=== PATIENT | female | born 1955 | race Caucasian/White ===

== ENCOUNTER 2017-09-09 13:18 | Outpatient (CLI) | payer OTHER | END 2017-09-09 13:19 | disposition home or self-care (01) | LOC: DTY/OP 13:18 | PROVIDERS: ATTEND Surgery | DX: Z48.815 Encounter for surgical aftercare following surgery on the digestive system (principal); E11.9 Type 2 diabetes mellitus without complications; Z98.84 Bariatric surgery status | CPT/HCPCS: 97802 ==

== ENCOUNTER 2017-09-22 08:00 | Outpatient (CLI) | payer MEDICARE | END 2017-09-22 08:01 | disposition home or self-care (01) | LOC: BICMAMMO 08:00 | PROVIDERS: ATTEND Family Medicine | DX: Z12.31 Encounter for screening mammogram for malignant neoplasm of breast (principal) | CPT/HCPCS: 77063; 77067 ==

== ENCOUNTER 2017-11-26 12:00 | Outpatient (CLI) | payer MEDICARE ==
--- NOTE | 2017-11-26 13:15 | ULT ---
RIGHT UPPER QUADRANT ULTRASOUND: DATE: 11/26/17. COMPARISON: None. HISTORY: Elevated liver function tests. TECHNIQUE: Multiplanar, sahni scale, sonographic imaging of the right upper quadrant obtained. FINDINGS: The hepatic parenchyma is heterogeneous and echogenic suggesting steatosis. This limits assessment f or focal liver lesion and intrahepatic biliary dilatation. The pancreas appears grossly unremarkable , not optimally assessed secondary to body habitus and bowel gas. The ultrasound technol reports a positive Alvarez's sign, significance uncertain as there is no evidence for cholelithiasis, gallbladder wall t hickening, or pericholecystic fluid. Common bile duct measures 4 mm, within normal limits. The right kidney measures 11.6 cm in craniocau ale dimension and demonstrates no stone, hydronephrosis, or mass lesion. IMPRESSION: Positive sonographic Alvarez's sign, significance uncertain. Clinical correlation required. Probable hepatic steatosis. No evidence for cholelithiasis or cholecystitis. POS: [facility]
== END 2017-11-26 12:01 | disposition home or self-care (01) ==
LOC: SCSULT 12:00
PROVIDERS: ATTEND Family Medicine
DX: K76.9 Liver disease, unspecified (principal); R74.8 Abnormal levels of other serum enzymes
CPT/HCPCS: 76705

== ENCOUNTER 2017-12-13 07:55 | Outpatient (CLI) | payer MEDICARE ==
[2017-12-13 10:55] LABS: #Basophils 0.1 thou/uL (0.0-0.2); #Eosinphils 0.2 thou/uL (0.0-0.7); #Lymphocytes 2.9 thou/uL (1.20-3.40); #Monocytes 0.7 thou/uL (0.11-0.59); %Basophils 0.8 % (0.0-1.0); %Eosinophils 2.8 % (0.0-10.0); %Monocytes 7.9 % (0.0-10.0); %Neutrophils 55.5 % (42.0-75.0); Hemoglobin 15.5 g/dL (12.0-16.0); Mean Corpuscular HGB CONC 35.6 g/dL (32.0-36.0); Mean Corpuscular Hemoglobin 33.1 pg (27.0-31.0); Mean Platelet Volume 7.9 fL (7.4-10.4); Platelet Count 343 thou/uL (130-400); Red Blood Cell (RBC) Count 4.68 mill/uL (4.20-5.40); White Blood Cell (WBC) Count 8.9 thou/uL (4.8-10.8)
[2017-12-13 10:59] LABS: Hemoglobin A1c 8.5 % (4.0-6.0)
[2017-12-13 11:16] LABS: ALT (SGPT) 82 U/L (8-55); AST (SGOT) 70 U/L (5-34); Albumin 4.3 g/dL (3.4-4.8); Alkaline Phosphatase 133 U/L (40-150); Anion Gap 15 mmol/L (10-20); BUN (Urea Nitrogen) 16 mg/dL (9.8-20.1); Bilirubin, Direct 0.4 mg/dL (0.1-0.3); Bilirubin, Total 0.9 mg/dL (0.2-1.2); Calc. Creatinine Clearance 0 mL/min (70-130); Carbon Dioxide 16 mmol/L (23-31); Chloride 110 mmol/L (98-107); Estimated GFR-MDRD 76; Globulin 3.1 g/dL (2.4-3.5); Glucose 191 mg/dL (80-115); Potassium 4.3 mmol/L (3.5-5.1); Protein, Total 7.4 g/dL (6.0-8.3); Sodium 137 mmol/L (136-145)
--- NOTE | 2017-12-13 11:54 | RAD ---
CHEST TWO VIEWS: History: Pre op. FINDINGS: Heart size and mediastinum within normal limits. The lungs are clear of infiltrates. There are arthri tic changes of the spine. IMPRESSION: No active intrathoracic disease. POS: [facility]
== END 2017-12-13 07:56 | disposition home or self-care (01) ==
LOC: LABBT 07:55
PROVIDERS: ATTEND Surgery
DX: Z01.818 Encounter for other preprocedural examination (principal); E11.9 Type 2 diabetes mellitus without complications; Z68.42 Body mass index [BMI] 45.0-49.9, adult
CPT/HCPCS: 71046; 80053; 80076; 83036; 85025

== ENCOUNTER 2017-12-13 08:00 | Inpatient (IN) | payer MEDICARE ==
[2017-12-13 08:32] VITALS: BMI 37.5
[2017-12-22] MEDS ORDERED: CEFAZOLIN/Water 2 GM/20 ML SYRINGE ONE (13:30)
[2017-12-22] MEDS ORDERED: Scopolamine 1.5 mg/72 hour Patch ONE (13:30)
[2017-12-22] MEDS ORDERED: Heparin 5,000 UNITS/ML VIAL ONE (13:36)
[2017-12-22] MEDS ORDERED: Bupivacaine/Epinephrine 0.25% 30 ML VIAL ONE (13:44)
[2017-12-22] MEDS ORDERED: ePHEDrine/0.9% NaCl/PF SYRINGE 50 mg/10 ml ONE (13:45)
[2017-12-22] MEDS ORDERED: Fentanyl 100 MCG/2 ML VIAL ONE ×4 (13:45→16:33)
[2017-12-22] MEDS ORDERED: Glycopyrrolate 0.2 MG/ML 5 ML SYRINGE ONE (13:45)
[2017-12-22] MEDS ORDERED: Lidocaine 1% PF 5 ML VIAL ONE (13:45)
[2017-12-22] MEDS ORDERED: PHENYLEPHRINE-NS 100 MCG/ML 10 ML SYRINGE ONE (13:45)
[2017-12-22] MEDS ORDERED: PROPOFOL 200 MG/20 ML VIAL ONE (13:45)
[2017-12-22] MEDS ORDERED: Levofloxacin 500 mg/D5W 100 ml Premix Bag ONE (13:52)
[2017-12-22] MEDS ORDERED: Promethazine HCl 25 MG/ML VIAL ONE (16:22)
[2017-12-22] MEDS ORDERED: diphenhydrAMINE 50 MG/ML VIAL IM PRN (17:13)
[2017-12-22] MEDS ORDERED: Naloxone HCl 0.4 mg/ml Vial IV PRN (17:13)
[2017-12-22] MEDS ORDERED: fentaNYL Citrate/PF 2,000 MCG in Sodium Chloride 0.9% 60 ML IV PRN (17:13)
[2017-12-22] MEDS ORDERED: diphenhydrAMINE 50 MG/ML VIAL IVP PRN ×2 (17:13→18:24)
[2017-12-22] MEDS ORDERED: Zolpidem Tartrate 5 MG TAB PO PRN (17:13)
[2017-12-22] MEDS ORDERED: Ondansetron PF 4 MG/2 ML Vial IVP PRN ×2 (17:13→18:24)
[2017-12-22] MEDS ORDERED: diphenhydrAMINE 25 MG CAP PO PRN (17:13)
[2017-12-22] MEDS ORDERED: Communication Order-Pharmacy FS SCH (17:15)
[2017-12-22] MEDS ORDERED: Dextrose 50% Abboject 50 ML SYRINGE SLOW IVP PRN (18:24)
[2017-12-22] MEDS ORDERED: Dextrose 5% in Water 1,000 ML IV PRN (18:24)
[2017-12-22] MEDS ORDERED: hydrALAZINE 20 MG/ML VIAL SLOW IVP PRN (18:24)
[2017-12-22] MEDS ORDERED: HumaLOG 300 UNITS/3 ML VIAL SC PRN (18:24)
[2017-12-22] MEDS ORDERED: Hydrocodone-Acetamin 15 ML UDCUP PO PRN (18:24)
[2017-12-22] MEDS: 1/2 NS w/KCL 20 mEq 1,000 ML IV SCH (19:55)
[2017-12-22] MEDS ORDERED: Enoxaparin Sodium 40 MG/0.4 ML SYRINGE SC SCH (21:00)
[2017-12-22] MEDS ORDERED: Pantoprazole 40 MG VIAL IVP SCH (21:00)
[2017-12-22] MEDS: Promethazine HCl 25 MG/ML VIAL IM PRN (21:11)
--- NOTE | 2017-12-23 00:31 | OP ---
DATE OF PROCEDURE: 12/22/2017 PREOPERATIVE DIAGNOSES: 1. Morbid obesity with body mass index of 37. 2. Diabetes mellitus type 2. POSTOPERATIVE DIAGNOSES: 1. Morbid obesity with body mass index of 37. 2. Diabetes mellitus type 2. 3. Paraesophageal hiatal hernia. PROCEDURE: 1. Laparoscopic sleeve gastrectomy with [place] staple line reinforcements and 38 [place] bougie. 2. Laparoscopic paraesophageal hiatal hernia repair without mesh or fundoplication. SURGEON: Temo Valverde M.D. ANESTHESIA: General. ESTIMATED BLOOD LOSS: Minimal. COMPLICATIONS: None. SPECIMEN: Stomach. FINDINGS: Normal postoperative EGD. TECHNIQUE: The patient was taken to the operating room and placed supine on the table. After genera l anesthetic was obtained, OG tube was used to decompress the stomach. Arms and legs were double str apped to bariatric table. The abdomen was prepped and draped in a sterile fashion. Left subcostal 5 -mm Optiview trocar was placed in the usual fashion without injury. High-flow pneumoperitoneum was o btained. Left and right abdominal 12-mm ports as well as a right subcostal 5-mm port were placed und er direct visualization. High-flow pneumoperitoneum was obtained. The patient was placed in [place] position. A 5-mm incision was made at the xiphoid and Harshad was used to raise the liver o ff the GE junction. There was a hiatal hernia present. Short gastrics were taken down to a distance of 5 cm proximal to the pylorus all the way to the left ulices of the diaphragm. The left ulices and po sterior fundus and angle of His were completely dissected exposing the hiatal hernia. Gastrohepatic ligament was entered and marched up to the right ulices of the diaphragm. A circumferential dissection was then performed in the mediastinum and the GE junction is brought back into the abdominal cavity. The fundus of the stomach that was in the hiatal hernia is brought back down as well. Ethibond sut ure and the tie knot system was used to reapproximate the posterior crura. This was performed after a 38-[place] bougie was brought in and its tip left in the antrum of the stomach. Multiple loads of a n [place] stapling device with [place] staple line reinforcements were then used to form the sleeve. Th e first is fired up at a distance of 6 cm proximal to the pylorus, angled up towards the incisura. M ultiple loads then fired up along the bougie and the stomach was completely transected at the angle o f His. The stomach removed from the left abdominal incision. This fascial defect was closed using G Tiana needle 0 Vicryl tie. EGD scope was passed into the esophagus, stomach to the level of the duod enum without obstruction or stricture. There is no air leakage on the staple line, no bleeding, no e vidence of too much stenosis at the esophageal gastric junction or at the diaphragmatic hiatus. EGD scope was used to decompress the stomach, it was pulled and removed. The Harshad was removed under direct visualization without bleeding. All ports were removed under direct visualization without bl eeding. Pneumoperitoneum was let down. Vicryl was used to close the fascial defect from left abdomi nal incisions. All incisions were irrigated and closed using 4-0 Monocryl and Dermabond. The patien t was en route to recovery in stable condition. All sponge counts, needle counts, lap counts were co rrect.
[2017-12-23] MEDS: Promethazine HCl 25 MG/ML VIAL IM PRN ×4 (00:45→10:23)
[2017-12-23] MEDS: 1/2 NS w/KCL 20 mEq 1,000 ML IV SCH (04:15)
[2017-12-23 04:32] LABS: #Basophils 0.1 thou/uL (0.0-0.2); #Eosinphils 0.1 thou/uL (0.0-0.7); #Lymphocytes 2.8 thou/uL (1.20-3.40); #Monocytes 1.3 thou/uL (0.11-0.59); #Neutrophils 8.1 thou/uL (1.40-6.50); %Basophils 0.7 % (0.0-1.0); %Eosinophils 0.5 % (0.0-10.0); %Lymphocytes 22.5 % (21.0-51.0); %Monocytes 10.6 % (0.0-10.0); %Neutrophils 65.7 % (42.0-75.0); Hemoglobin 13.8 g/dL (12.0-16.0); Mean Corpuscular HGB CONC 35.4 g/dL (32.0-36.0); Mean Corpuscular Hemoglobin 33.2 pg (27.0-31.0); Mean Corpuscular Volume 93.8 fL (78.0-98.0); Mean Platelet Volume 8.1 fL (7.4-10.4); Platelet Count 300 thou/uL (130-400); RBC Distribution Width 11.2 % (11.5-14.5); Red Blood Cell (RBC) Count 4.15 mill/uL (4.20-5.40); White Blood Cell (WBC) Count 12.4 thou/uL (4.8-10.8)
[2017-12-23 04:56] LABS: Anion Gap 13 mmol/L (10-20); BUN (Urea Nitrogen) 10 mg/dL (9.8-20.1); Calc. Creatinine Clearance 122 mL/min (70-130); Calcium 8.7 mg/dL (7.8-10.44); Carbon Dioxide 21 mmol/L (23-31); Chloride 108 mmol/L (98-107); Estimated GFR-MDRD 78; Glucose 205 mg/dL (80-115); Potassium 3.5 mmol/L (3.5-5.1); Sodium 138 mmol/L (136-145)
[2017-12-23 12:17] VITALS: BP 129/75; TEMP 98.1
--- NOTE | 2017-12-24 00:20 | DIS ---
DATE OF ADMISSION: 12/22/2017 DATE OF DISCHARGE: 12/23/2017 ADMIT DIAGNOSES: 1. Morbid obesity. 2. Diabetes mellitus, type 2. DISCHARGE DIAGNOSES: 1. Morbid obesity. 2. Diabetes mellitus, type 2. 3. Diaphragmatic hiatal hernia. PROCEDURES: Laparoscopic gastric sleeve and hiatal hernia repair by Dr. Valverde without complication . CONDITION AT DISCHARGE: Improved. STAFF: Dr. Temo Valverde. HOSPITAL COURSE: Patient admitted to the floor postop, tolerated clear liquids immediately. On post op day #1, she is tolerating liquid diet. She is ambulatory. Her pain is controlled. She is discha rged home. She will follow up with me in the office in 2 weeks.
== END 2017-12-23 14:47 | disposition home or self-care (01) | DRG 621 ==
LOC: SURG A 12-22 11:56 → SJJU 12-22 18:05
PROVIDERS: ADMIT Surgery; ATTEND Surgery
PROC: 0DB64Z3 Excision of Stomach, Percutaneous Endoscopic Approach, Vertical (ICD-10-PCS; principal; 2017-12-22)
PROC: 0BQT4ZZ Repair Diaphragm, Percutaneous Endoscopic Approach (ICD-10-PCS; 2017-12-22)
DX: E66.01 Morbid (severe) obesity due to excess calories (principal); K44.9 Diaphragmatic hernia without obstruction or gangrene; E11.43 Type 2 diabetes mellitus with diabetic autonomic (poly)neuropathy; Z79.4 Long term (current) use of insulin; Z68.37 Body mass index [BMI] 37.0-37.9, adult
CPT/HCPCS: 36415; 36416; 80048; 85025; 88307; 88312; 94760; C9113; J0131; J1644; J1650; J1956; J2001; J2405; J2550; J2704; J3010; J7050

== ENCOUNTER 2018-06-20 13:25 | Outpatient (CLI) | payer MEDICARE, OTHER ==
--- NOTE | 2018-06-20 13:53 | RAD ---
LEFT HIP TWO VIEWS: History: Hip pain x three weeks. FINDINGS: There are some arthritic changes of the hip. There is some spurring of the acetabulum and along the f emoral head and neck junction. No significant joint space narrowing. IMPRESSION: Mild arthritic change of the hip. POS: [facility]
== END 2018-06-20 13:26 | disposition home or self-care (01) ==
LOC: SCSRAD 13:25
PROVIDERS: ATTEND Family Medicine
DX: M25.552 Pain in left hip (principal); M16.12 Unilateral primary osteoarthritis, left hip

== ENCOUNTER 2018-06-22 12:14 | Outpatient (CLI) | payer MEDICARE ==
--- NOTE | 2018-06-22 13:19 | RAD ---
LUMBAR SPINE FOUR VIEWS: History: Low back pain. FINDINGS: There are five lumbar type vertebrae. Pedicles are intact. Rightward convex rotatory scoliotic curvat ure. Vertebral body heights and AP alignment are maintained. Mild osteophytosis. No abnormal translat ional motion upon flexion or extension. IMPRESSION: Degenerative changes lumbar spine. No acute osseous abnormalities are demonstrated. POS: [facility]
== END 2018-06-22 12:15 | disposition home or self-care (01) ==
LOC: SCSRAD 12:14
PROVIDERS: ATTEND Family Medicine
DX: M47.26 Other spondylosis with radiculopathy, lumbar region (principal)
CPT/HCPCS: 72120

== ENCOUNTER 2018-11-10 09:35 | Outpatient (CLI) | payer MEDICARE ==
--- NOTE | 2018-11-10 11:01 | MRI ---
EXAM: MRI lumbar spine without contrast HISTORY: Chronic low back pain COMPARISON: None TECHNIQUE: Multiple planar multisequence MR images were obtained of the lumbar spine without contrast . FINDINGS: The vertebral bodies and intervertebral discs demonstrate normal height and alignment without fractur e or subluxation. Generalized disc desiccation is seen. The prevertebral and paraspinal soft tissues are unremarkable. No marrow signal abnormality is present. The conus medullaris terminates normally at T12/L1. T12/L1: No significant posterior bulge or protrusion. No posterior facet arthrosis. No central davis l stenosis. No neural foraminal stenosis L1/2: A small generalized concentric disc bulge is present. No posterior facet arthrosis. No centra l canal stenosis. No neural foraminal stenosis L2/3: No significant posterior bulge or protrusion. No posterior facet arthrosis. No central canal stenosis. No neural foraminal stenosis L3/4: No significant posterior bulge or protrusion. No posterior facet arthrosis. No central canal stenosis. No neural foraminal stenosis L4/5: No significant posterior bulge or protrusion. Moderate bilateral posterior facet arthrosis. N o central canal stenosis. No neural foraminal stenosis L5/S1: No significant posterior bulge or protrusion. Moderate bilateral posterior facet arthrosis. No central canal stenosis. No neural foraminal stenosis IMPRESSION: Mild degenerative changes of the lumbar spine as above.
== END 2018-11-10 09:36 | disposition home or self-care (01) ==
LOC: BICMRI 09:35
PROVIDERS: ATTEND Family Medicine
DX: M54.5 Low back pain (principal); M47.816 Spondylosis without myelopathy or radiculopathy, lumbar region
CPT/HCPCS: 72148

== ENCOUNTER 2018-11-25 10:22 | Outpatient (CLI) | payer MEDICARE ==
--- NOTE | 2018-11-25 11:40 | CT ---
CT ABDOMEN PELVIS WITH ORAL AND IV CONTRAST: HISTORY: Fatty liver, ulcerative colitis, gastroparesis, abdominal pain COMPARISON: 07/30/2016 FINDINGS: There are tiny pleural effusions. There is fatty infiltration of the liver without focal mass or abno rmal biliary ductal dilatation. No calcified gallstones are seen. The spleen, pancreas, adrenal glands and kidneys appear normal. No free air, free fluid or lymphadeno jayde is noted in the abdomen or pelvis. There are vascular calcifications without evidence of aneurysmal dilatation of the abdominal aorta. There are degenerative changes in the spine. The small bowel loops are not abnormally dilated. There is mild sigmoid diverticulosis. A 12 mm soft tissue nodule posterior to the cecum is stable. The patient is post hysterectomy and appendectomy. Postoperative changes are noted in the GE junction and stomach. IMPRESSION: 1. No evidence of acute process. 2. Fatty liver 3. Mild sigmoid diverticulosis
[2018-11-25] MEDS ORDERED: Iopamidol 370 76% 100 ML VIAL ONE (11:43)
== END 2018-11-25 10:23 | disposition home or self-care (01) ==
LOC: BICCT 10:22
PROVIDERS: ATTEND Family Medicine
DX: K76.0 Fatty (change of) liver, not elsewhere classified (principal); K31.84 Gastroparesis; R52 Pain, unspecified; K57.30 Diverticulosis of large intestine without perforation or abscess without bleeding; Z87.19 Personal history of other diseases of the digestive system
CPT/HCPCS: 74177; Q9967

== ENCOUNTER 2019-04-24 14:54 | Emergency (ER) | payer MEDICARE ==
[~2019-04-24 14:54] MED LIST: Iopamidol-370 76% 500 ML 1 ML ONE
[2019-04-24 15:37] LABS: #Basophils 0.1 thou/uL (0.0-0.2); #Eosinphils 0.2 thou/uL (0.0-0.7); #Lymphocytes 3.4 thou/uL (1.20-3.40); #Monocytes 0.6 thou/uL (0.11-0.59); #Neutrophils 4.5 thou/uL (1.40-6.50); %Basophils 0.8 % (0.0-1.0); %Eosinophils 2.4 % (0.0-10.0); %Lymphocytes 38.9 % (21.0-51.0); %Monocytes 6.4 % (0.0-10.0); %Neutrophils 51.5 % (42.0-75.0); Hemoglobin 15.6 g/dL (12.0-16.0); Mean Corpuscular Hemoglobin 32.2 pg (27.0-31.0); Mean Corpuscular Volume 94.8 fL (78.0-98.0); Platelet Count 397 thou/uL (130-400); RBC Distribution Width 11.4 % (11.5-14.5); Red Blood Cell (RBC) Count 4.83 mill/uL (4.20-5.40); White Blood Cell (WBC) Count 8.7 thou/uL (4.8-10.8)
[2019-04-24 15:51] LABS: ALT (SGPT) 35 U/L (8-55); AST (SGOT) 30 U/L (5-34); Alkaline Phosphatase 105 U/L (40-110); Anion Gap 12 mmol/L (10-20); BUN (Urea Nitrogen) 11 mg/dL (9.8-20.1); Bilirubin, Total 0.7 mg/dL (0.2-1.2); Calc. Creatinine Clearance 0 mL/min (70-130); Calcium 9.5 mg/dL (7.8-10.44); Carbon Dioxide 23 mmol/L (23-31); Chloride 109 mmol/L (98-107); Estimated GFR-MDRD 69; Globulin 3.1 g/dL (2.4-3.5); Glucose 121 mg/dL (80-115); Lipase 9 U/L (8-78); Protein, Total 7.1 g/dL (6.0-8.3); Sodium 140 mmol/L (136-145)
--- NOTE | 2019-04-24 18:55 | CT ---
CT abdomen and pelvis: 04/24/2019 COMPARISON: 11/25/2018 HISTORY: Lower abdominal pain, back pain TECHNIQUE: Axial CT imaging at 5 mm intervals through the abdomen/pelvis with intravenous contrast. C oronal and sagittal reformatted imaging obtained. FINDINGS: The imaged lung bases are unremarkable. No free intraperitoneal air or fluid is seen. The hepatic parenchyma is diffusely hypodense, suggesting hepatic steatosis. The gallbladder, spleen, pancreas, adrenal glands, and kidneys appear grossly unremarkable. There is mild sigmoid colonic diverticulosis. No evidence for diverticulitis. No evidence for bowel i nflammatory change or bowel obstruction. There is a gastric suture line present. The appendix is not discretely visualized. No right lower quadrant inflammatory change noted to sugge st acute appendicitis. The vascular structures of the abdomen/pelvis appear patent. No abdominal or pelvic lymphadenopathy is noted. No acute osseous abnormality is noted. IMPRESSION: Incidental findings as detailed above. No acute findings are noted within the abdomen/pel vis.
[2019-04-24 21:19] LABS: Bilirubin Negative (Negative); Blood, Urine Negative (Negative); Clarity Clear (Clear); Glucose, Urine (Dipstick) Normal (Negative); Leukocyte Negative Leu/uL (Negative); Nitrite Negative (Negative); Protein, Urine (Dipstick) Negative (Neg-Trace); Urobilinogen Normal mg/dL (Less than 2)
[2019-04-24] MEDS ORDERED: Morphine 4 MG/ML VIAL ONE (21:50)
[2019-04-24] MEDS ORDERED: Promethazine HCl 25 MG/ML VIAL ONE (21:50)
[2019-04-24] MEDS ORDERED: Fentanyl 100 MCG/2 ML VIAL ONE (22:01)
== END 2019-04-24 22:51 | disposition home or self-care (01) ==
LOC: ERS 14:54
DX: K57.92 Diverticulitis of intestine, part unspecified, without perforation or abscess without bleeding (principal); I10 Essential (primary) hypertension; E11.9 Type 2 diabetes mellitus without complications; F43.10 Post-traumatic stress disorder, unspecified; F41.9 Anxiety disorder, unspecified; F32.9 Major depressive disorder, single episode, unspecified; Z79.899 Other long term (current) drug therapy
CPT/HCPCS: 36415; 74177; 80053; 81003; 83690; 85025; 96365; 96375; J2270; J2550; J3010; Q9967

== ENCOUNTER 2019-09-21 13:27 | Outpatient (CLI) | payer MEDICARE ==
--- NOTE | 2019-09-21 15:21 | CT ---
CT ANGIOGRAM THORAX WITH CONTRAST: (CTA pulmonary angiogram) DATE: 09/21/2019 HISTORY: 63-year-old female with elevated d-dimer and dyspnea TECHNIQUE: IV injection of iodinated contrast. Scan acquisition timing attempted to coincide with iodinated contrast bolus reaching maximal density in pulmonary arteries. 3-D MIP reconstructions. FINDINGS: No pulmonary thromboembolism identified. Mild ectasia and tortuosity of thoracic aorta without aneury sm, dissection, or rupture. Suture line along narrowed stomach partially visualized. Nonspecific mild confluent pulmonary groundglass opacities in the central, perihilar portions of bila teral lower lobes and also in the lingula of the left upper lobe. Tiny bilateral pleural effusions. Borderline or mild cardiomegaly, including left and right atrial di lation. The upper lung zones are relatively clear. No pneumothorax. Trachea and bilateral mainstem bronchi are patent and clear. Scattered mildly enlarged mediastinal lymph nodes. IMPRESSION: 1. No evidence of pulmonary thromboembolism. 2. Mild groundglass pulmonary opacities at the lower lung zones bilaterally. This is nonspecific. Thi s may represent minimal, early pulmonary interstitial edema of mild congestive heart failure. The pattern is not classic for COVID-19, although that is not completely excluded. 3. Tiny bilateral pleural effusions.
== END 2019-09-21 13:28 | disposition home or self-care (01) ==
LOC: SCSCT 13:27 → CT 13:28
PROVIDERS: ATTEND Family Medicine
DX: R79.1 Abnormal coagulation profile (principal); R91.8 Other nonspecific abnormal finding of lung field; J90 Pleural effusion, not elsewhere classified
CPT/HCPCS: 71275; 82565

== ENCOUNTER 2019-11-06 10:03 | Outpatient (CLI) | payer MEDICARE ==
--- NOTE | 2019-11-06 12:15 | CT ---
CT ANGIOGRAM OF THE ABDOMEN AND PELVIS: HISTORY: May-Thurner syndrome. Left leg swelling, intermittent. Patient now has bilateral lower extremity swel ling. COMPARISON: None. TECHNIQUE: CT angiogram of the abdomen and pelvis is performed in the axial plane. Three-dimensional reformatted images are submitted for interpretation. FINDINGS: Visualized solid organs of appropriate arterial phase enhancement. No retroperitoneal mass, lymphadenopathy, Visualized alimentary canal does not demonstrate any obstructive process. Ileocecal junction is hair l. Appendix is not appreciated. No significant inflammation of the cecal apex. There is scattered fecal material in a decompressed colon. Uterus is surgically absent. Urinary bladder has a normal appearance. There are no lytic or blastic lesions in the osseous structures. There is appropriate enhancement and luminal diameter of the infrarenal abdominal aorta, bilateral co mmon iliac arteries, bilateral external iliac arteries and bilateral internal iliac arteries. Bilateral femoral arteries are also patent. Delayed images demonstrate a patent inferior vena cava. T here is no significant mass effect upon either common iliac vein, internal iliac veins or external iliac veins. There are no filling defects. IMPRESSION: 1. Appropriate enhancement and luminal diameter the visualized aorta and iliac arteries. 2. Appropriate enhancement and luminal diameter of the visualized inferior vena cava and iliac arteri es. There is no significant mass effect upon either common iliac artery, internal iliac artery or external iliac artery. Transcribed Date/Time: 11/06/2019 12:19 PM
[2019-11-06] MEDS ORDERED: Iopamidol 370 76% 100 ML VIAL ONE (13:44)
== END 2019-11-06 10:04 | disposition home or self-care (01) ==
LOC: BICCT 10:03
PROVIDERS: ATTEND Internal Medicine Cardiovascular Disease
DX: R60.0 Localized edema (principal)
CPT/HCPCS: 72191; 82565; Q9967

== ENCOUNTER 2020-04-18 15:28 | Outpatient (CLI) | payer MEDICARE ==
--- NOTE | 2020-04-18 15:47 | [facility] ---
RADIOGRAPH CHEST 2 VIEW: DATE: 04/18/2020 TIME: 3:39 PM HISTORY: 64-year-old female with cough COMPARISON: 12/13/2017 FINDINGS: New finding of multifocal patchy groundglass infiltrates scattered in bilateral upper lobes and lower lobes. No pleural effusion or pneumothorax. IMPRESSION: Multifocal bilateral mild infiltrates: Probably COVID-19 pneumonia
== END 2020-04-18 15:29 | disposition home or self-care (01) ==
LOC: SCSRAD 15:28
PROVIDERS: ATTEND Family Medicine
DX: U07.1 COVID-19 (principal)
CPT/HCPCS: 87635; U0003

== ENCOUNTER 2020-07-19 14:13 | Outpatient (CLI) | payer MEDICARE | END 2020-07-19 14:14 | disposition home or self-care (01) | LOC: SCSRAD 14:13 | PROVIDERS: ATTEND Family Medicine | DX: M25.512 Pain in left shoulder (principal); M79.89 Other specified soft tissue disorders; W10.8XXD Fall (on) (from) other stairs and steps, subsequent encounter | CPT/HCPCS: 72170 ==

== ENCOUNTER 2021-03-05 14:11 | Outpatient (CLI) | payer MEDICARE ==
[~2021-03-05 14:11] MED LIST changes: +Iopamidol 370 76% 100 ML VIAL ONE; -Iopamidol-370 76% 500 ML 1 ML ONE
== END 2021-03-05 14:12 | disposition home or self-care (01) ==
LOC: BICCT 14:11
PROVIDERS: ATTEND Nurse Practitioner Acute Care
DX: G43.009 Migraine without aura, not intractable, without status migrainosus (principal)
CPT/HCPCS: 70496; Q9967

== ENCOUNTER 2021-10-09 13:40 | Outpatient (CLI) | payer MEDICARE | END 2021-10-09 13:41 | disposition home or self-care (01) | LOC: BICMAMMO 13:40 | PROVIDERS: ATTEND Family Medicine | DX: Z12.31 Encounter for screening mammogram for malignant neoplasm of breast (principal); Z13.820 Encounter for screening for osteoporosis; M85.89 Other specified disorders of bone density and structure, multiple sites; Z78.0 Asymptomatic menopausal state | CPT/HCPCS: 77063; 77067; 77080 ==

== ENCOUNTER 2022-01-13 18:26 | Emergency (ER) | payer MEDICARE ==
[~2022-01-13 18:26] MED LIST changes: -Iopamidol 370 76% 100 ML VIAL ONE; +Iopamidol-370 76% 500 ML 1 ML ONE
[2022-01-13 18:54] LABS: #Basophils 0.1 thou/uL (0.0-0.2); #Eosinphils 0.2 thou/uL (0.0-0.7); #Lymphocytes 3.7 thou/uL (1.20-3.40); #Monocytes 0.9 thou/uL (0.11-0.59); #Neutrophils 5.3 thou/uL (1.40-6.50); %Basophils 0.9 % (0.0-1.0); %Eosinophils 1.5 % (0.0-10.0); %Lymphocytes 36.6 % (21.0-51.0); %Neutrophils 52.1 % (42.0-75.0); Hemoglobin 15.3 g/dL (12.0-16.0); Mean Corpuscular Hemoglobin 33.4 pg (27.0-31.0); Mean Corpuscular Volume 98.3 fL (78.0-98.0); Mean Platelet Volume 7.6 fL (7.4-10.4); Platelet Count 319 thou/uL (130-400); RBC Distribution Width 10.9 % (11.5-14.5); Red Blood Cell (RBC) Count 4.57 mill/uL (4.20-5.40); White Blood Cell (WBC) Count 10.2 thou/uL (4.8-10.8)
[2022-01-13 19:17] LABS: ALT (SGPT) 17 U/L (8-55); AST (SGOT) 27 U/L (5-34); Alkaline Phosphatase 110 U/L (40-110); Anion Gap 14 mmol/L (10-20); BUN (Urea Nitrogen) 8 mg/dL (9.8-20.1); Bilirubin, Total 0.5 mg/dL (0.2-1.2); Calc. Creatinine Clearance 0 mL/min (70-130); Carbon Dioxide 29 mmol/L (23-31); Chloride 100 mmol/L (98-107); Estimated GFR 82; Globulin 3.6 g/dL (2.4-3.5); Glucose 88 mg/dL (80-115); Lipase 16 U/L (8-78); Potassium 4.1 mmol/L (3.5-5.1); Protein, Total 7.6 g/dL (5.8-8.1); Sodium 139 mmol/L (136-145)
[2022-01-13] MEDS ORDERED: Fentanyl 100 MCG/2 ML VIAL ONE (19:34)
[2022-01-13] MEDS ORDERED: Ketorolac Tromethamine 30 MG/ML VIAL ONE (19:34)
[2022-01-13 21:27] LABS: Bilirubin Negative (Negative); Blood, Urine Negative (Negative); Clarity Clear (Clear); Glucose, Urine (Dipstick) Normal (Negative); Ketone, Urine Negative (Negative); Leukocyte Negative Leu/uL (Negative); Nitrite Negative (Negative); Protein, Urine (Dipstick) Negative (Neg-Trace); Specific Gravity, Urine 1.012 (1.002-1.036); Urobilinogen Normal mg/dL (Less than 2); pH, Urine 7.5 (5.0-9.0)
[2022-01-13] MEDS ORDERED: HYDROmorphone 0.5 MG/0.5 ML SYRINGE ONE (22:03)
== END 2022-01-13 22:35 | disposition home or self-care (01) ==
LOC: ERS 18:26
DX: E86.0 Dehydration (principal); N39.0 Urinary tract infection, site not specified; E11.9 Type 2 diabetes mellitus without complications; I10 Essential (primary) hypertension; Z79.899 Other long term (current) drug therapy
CPT/HCPCS: 36415; 74177; 80053; 81003; 82550; 83605; 83690; 83880; 84443; 84484; 85025; 87040; 87086; 93005; 96374; 96375; J1170; J1885; J3010; Q9967

== ENCOUNTER 2022-01-16 16:15 | Emergency (ER) | payer MEDICARE ==
[2022-01-16 17:21] LABS: #Basophils 0.1 thou/uL (0.0-0.2); #Eosinphils 0.2 thou/uL (0.0-0.7); #Lymphocytes 3.1 thou/uL (1.20-3.40); #Monocytes 0.8 thou/uL (0.11-0.59); #Neutrophils 4.1 thou/uL (1.40-6.50); %Basophils 0.6 % (0.0-1.0); %Lymphocytes 37.6 % (21.0-51.0); %Monocytes 9.5 % (0.0-10.0); %Neutrophils 50.2 % (42.0-75.0); Mean Corpuscular HGB CONC 33.5 g/dL (32.0-36.0); Mean Corpuscular Volume 98.6 fL (78.0-98.0); Mean Platelet Volume 7.7 fL (7.4-10.4); Platelet Count 308 thou/uL (130-400); Red Blood Cell (RBC) Count 4.24 mill/uL (4.20-5.40); White Blood Cell (WBC) Count 8.3 thou/uL (4.8-10.8)
[2022-01-16 17:43] LABS: ALT (SGPT) 18 U/L (8-55); AST (SGOT) 25 U/L (5-34); Albumin 3.6 g/dL (3.4-4.8); Alkaline Phosphatase 103 U/L (40-110); Anion Gap 14 mmol/L (10-20); BUN (Urea Nitrogen) 10 mg/dL (9.8-20.1); Bilirubin, Total 0.6 mg/dL (0.2-1.2); Calc. Creatinine Clearance 0 mL/min (70-130); Calcium 8.8 mg/dL (7.8-10.44); Carbon Dioxide 24 mmol/L (23-31); Chloride 105 mmol/L (98-107); Estimated GFR 91; Globulin 3.3 g/dL (2.4-3.5); Glucose 105 mg/dL (80-115); Lipase 10 U/L (8-78); Protein, Total 6.9 g/dL (5.8-8.1); Sodium 139 mmol/L (136-145)
[2022-01-16 20:09] LABS: Bacteria/HPF None Seen HPF (None Seen); Bilirubin Negative (Negative); Blood, Urine Negative (Negative); Clarity Clear (Clear); Glucose, Urine (Dipstick) Normal (Negative); Ketone, Urine Negative (Negative); Leukocyte 25 Leu/uL (Negative); Nitrite Negative (Negative); Protein, Urine (Dipstick) Negative (Neg-Trace); RBC/HPF None Seen HPF (0-3); Specific Gravity, Urine 1.008 (1.002-1.036); Squamous Epithelial 0-3 HPF (0-3); Urobilinogen Normal mg/dL (Less than 2); WBC/HPF 0-3 HPF (0-3)
[2022-01-16] MEDS ORDERED: Phenazopyridine HCl 100 MG TAB PO SCH (20:15)
[2022-01-16] MEDS ORDERED: Morphine 2 MG/ML VIAL ONE (21:01)
[2022-01-16] MEDS ORDERED: Promethazine HCl 12.5 MG SUPP ONE (21:08)
[2022-01-16] MEDS ORDERED: HYDROmorphone 0.5 MG/0.5 ML SYRINGE ONE (21:08)
[2022-01-16] MEDS ORDERED: Promethazine HCl 12.5 MG in Sodium Chloride 0.9% 50 ML IVPB SCH (21:15)
== END 2022-01-16 22:27 | disposition home or self-care (01) ==
LOC: ERS 16:15
DX: R10.30 Lower abdominal pain, unspecified (principal); I10 Essential (primary) hypertension; E11.43 Type 2 diabetes mellitus with diabetic autonomic (poly)neuropathy; K31.84 Gastroparesis; Z79.899 Other long term (current) drug therapy
CPT/HCPCS: 36415; 80053; 81003; 81015; 83690; 85025; 94760; 96374; 96375; J1170; J2270; J2550

== ENCOUNTER 2022-04-11 21:02 | Emergency (ER) | payer MEDICARE ==
[2022-04-12] MEDS ORDERED: HYDROcodone/Acetaminophen 10/325 mg Tablet ONE (01:10)
[2022-04-12] MEDS ORDERED: Morphine 4 MG/ML VIAL ONE (01:10)
== END 2022-04-12 01:43 | disposition home or self-care (01) ==
LOC: ERS 21:02
DX: S39.012A Strain of muscle, fascia and tendon of lower back, initial encounter (principal); I10 Essential (primary) hypertension; E11.9 Type 2 diabetes mellitus without complications
CPT/HCPCS: 96372; 99283; J2270

== ENCOUNTER 2024-03-09 13:07 | Outpatient (CLI) | payer MEDICARE | END 2024-03-09 13:08 | disposition home or self-care (01) | LOC: BICMAMMO 13:07 | PROVIDERS: ATTEND Family Medicine | DX: Z12.31 Encounter for screening mammogram for malignant neoplasm of breast (principal); N95.1 Menopausal and female climacteric states; M85.89 Other specified disorders of bone density and structure, multiple sites | CPT/HCPCS: 77063; 77067; 77080 ==

== ENCOUNTER 2024-06-01 14:52 | Emergency (ER) | payer MEDICARE ==
[2024-06-01 16:21] LABS: #Basophils Less than 0.03 10x3/uL (0.0-0.2); %Basophils 0.4 % (0.0-1.0); %Eosinophils 0.5 % (0.0-10.0); %Lymphocytes 32.9 % (21.0-51.0); Hematocrit 40.6 % (36.0-47.0); Hemoglobin 14.6 g/dL (12.0-16.0); Mean Corpuscular Hemoglobin 31.7 pg (27.0-31.0); Mean Corpuscular Volume 88.1 fL (78.0-98.0); Mean Platelet Volume 9.8 fL (7.4-10.4); Platelet Count 271 10x3/uL (130-400); RBC Distribution Width 11.7 % (11.5-14.5); Red Blood Cell (RBC) Count 4.61 mill/uL (4.20-5.40)
[2024-06-01] MEDS ORDERED: Morphine 4 MG/ML VIAL ONE (16:42)
[2024-06-01 16:47] LABS: Troponin I 0.013 ng/mL (< 0.028)
[2024-06-01] MEDS ORDERED: Promethazine HCl 25 MG/ML VIAL ONE (16:53)
[2024-06-01 17:31] LABS: ALT (SGPT) 21 U/L (8-55); AST (SGOT) 31 U/L (5-34); Albumin 3.4 g/dL (3.4-4.8); Alkaline Phosphatase 78 U/L (40-110); Anion Gap 12 mmol/L (10-20); BUN (Urea Nitrogen) Less than 4 mg/dL (9.8-20.1); Bilirubin, Total 0.8 mg/dL (0.2-1.2); Calc. Creatinine Clearance 0 mL/min (70-130); Calcium 9.3 mg/dL (7.8-10.44); Carbon Dioxide 22 mmol/L (23-31); Chloride 109 mmol/L (98-107); Estimated GFR 98; Globulin 3.1 g/dL (2.4-3.5); Glucose 103 mg/dL (80-115); Lipase 13 U/L (8-78); Potassium 3.5 mmol/L (3.5-5.1); Protein, Total 6.5 g/dL (5.8-8.1); Sodium 139 mmol/L (136-145)
[2024-06-01] MEDS ORDERED: Ketorolac Tromethamine 30 MG (1 mL) VIAL ONE (18:33)
== END 2024-06-01 18:46 | disposition home or self-care (01) ==
LOC: ERS 14:52
DX: G89.29 Other chronic pain (principal); M54.9 Dorsalgia, unspecified; K59.00 Constipation, unspecified; R54 Age-related physical debility; I10 Essential (primary) hypertension; E11.9 Type 2 diabetes mellitus without complications; Z79.899 Other long term (current) drug therapy
CPT/HCPCS: 71046; 80053; 83690; 84484; 85025; 93005; 96374; 96375; 99284; J1885; J2270; J2550; 36415